=== PATIENT | female | born 1975 | race Caucasian/White ===

== ENCOUNTER 2020-01-21 23:59 | Emergency (ER) | payer MEDICAID, SELFPAY ==
[2020-01-22 00:04] VITALS: BP 117/81; PULSE 102; RESP 16; TEMP 37.1; O2SAT 100; BMI 36.0
--- NOTE | 2020-01-22 00:10 | ECG_ITS ---
APPROVED REPORT Exam: Resting ECG HR:97 bpm ECG Measurements Heart Rate 97 AXES SC 140 P 59 QRSd 76 QRS 47 QT 374 T 46 QTc 474 <Conclusion> Normal sinus rhythm Normal ECG Electronically signed by : Oscar Howard, 01/22/2020 06:16:17
--- NOTE | 2020-01-22 00:15 | CT_ITS ---
PROCEDURE: CT HEAD/BRAIN WO CON Patient Age:44Y CLINICAL INDICATION: dizzy more pronounced today Diabetic smoker COMPARISON: No exams were available for comparison TECHNIQUE: Routine axial images were obtained. All CT scans at the facility use one or more dose reduction, viz: automated exposure control, ma/kV adjustment per patient size (including targeted exams where dose is matched to indication, i.e. head), or iterative reconstruction technique. FINDINGS: No acute intracranial findings. No intracranial hemorrhage. No hydrocephalus.The ventricles and basal cisterns appear clear and satisfactory. No mass or midline shift nor mass effect. No subdural or extra-axial fluid collection is evident. Posterior fossa satisfactory/unremarkable. 4th ventricle normal position. Quadrigeminal cistern satisfactory. CP angles clear and unremarkable on this noncontrast study. Skull intact- calvarium unremarkable appearance. Nomastoid effusions. Mastoid air cells are well developed and clear throughout. Middle ear clear and unremarkable. IAC's symmetric. WNL Visualized portions of the paranasal sinuses and orbits unremarkable. Nosinus air-fluid level. Engorgement of nasal turbinates with deviation of the nasal septum and generous septal spur to the right noted. IMPRESSION: No acute intracranial findings. Unremarkable CT brain without contrast Dictated by: Olaf Canales MD 01/22/2020 07:41 Electronically signed by Olaf Canales MD in [facility] 01/22/2020 07:41
--- NOTE | 2020-01-22 00:15 | XR_ITS ---
PROCEDURE: XR CHEST 2V Patient Age:44Y CLINICAL HISTORY: near syncope COMPARISON: ABDPELW/O CT ABD PELVIS W/O CONTRAST from 12/09/2016 FINDINGS: PA and lateral chest performed. Heart is upper normal in size. Upper normal to head perhaps slight generous pulmonary vascularity. Could reflect some mild vascular engorgement but no overt CHF. Karlene and mediastinal structures satisfactory . The lungs are clear without infiltrates, suspicious nodules, or pleural effusions. No acute bony abnormalities. Generous marginal osteophytes T-spine most evident to the right and appear to account for densities project over disc spaces mid T-spine on lateral view . Previous anterior fusion, discectomy lower C-spine IMPRESSION: Nothing definitely acute. Lungs appear clear. No infiltrate or pneumonia Upper normal pulmonary vascularity Dictated by: Olaf Canales MD 01/22/2020 07:50 Electronically signed by Olaf Canales MD in [facility] 01/22/2020 07:50
[2020-01-22 00:48] LABS: Basophils # 0.1 K/mm3 (0-0.2); Basophils % 1.7 % (0.1-2.0); Eosinophils # 0.2 K/mm3 (0.0-0.4); Eosinophils % 2.7 % (0.1-12.0); Hematocrit 39.5 % (37.0-47.0); Hemoglobin 13.3 g/dL (12.2-16.2); Lymphocytes % 26.6 % (10-50); Mean Corpuscular HGB Conc 33.7 g/dL (31.8-35.4); Mean Corpuscular Hemoglobin 29.8 pg (27.0-31.2); Mean Corpuscular Volume 88.4 fl (81-99); Mean Platelet Volume 7.8 fl (7.4-10.4); Monocytes # 0.4 K/mm3 (0.1-1.0); Monocytes % 5.2 % (1.7-9.3); Neutrophils # 4.8 K/mm3 (1.8-7.8); Neutrophils % 63.8 % (37.0-80.0); Platelet Count 295 K/mm3 (142-424); Red Blood Count 4.48 M/mm3 (4.20-5.40); Red Cell Distribution Width 14.2 % (11.5-17.5); White Blood Count 7.5 K/mm3 (4.8-10.8)
[2020-01-22 00:58] VITALS: BP 113/64; PULSE 79; RESP 16; O2SAT 100
[2020-01-22 01:05] LABS: Alanine Aminotransferase 21 U/L (12-78); Albumin Level 4.2 g/dl (3.5-5.0); Albumin/Globulin Ratio 1.2 (1.1-1.8); Alkaline Phosphatase 94 U/L (38-126); Anion Gap 8.9 mEq/L (5-15); Aspartate Amino Transferase 35 U/L (14-36); Bilirubin,Total 0.2 mg/dl (0.2-1.3); Blood Urea Nitrogen 11 mg/dl (7-17); Calcium 9.3 mg/dl (8.4-10.2); Carbon Dioxide 29 mmol/L (22.0-30.0); Chloride 102 mmol/L (98-107); Creatinine Clearance Estimated 193 mL/min (50-200); Estimated Glomerular Filt Rate 108 ml/min (>60); GFR (African American) 130 ML/MIN (>60); Globulin 3.6 g/dL (1.3-3.2); Glucose 111 mg/dl (74-100); Potassium 3.9 mmoL/L (3.5-5.1); Sodium 136 mmol/L (136-145); Total Protein,Serum 7.8 g/dl (6.3-8.2)
[2020-01-22 01:10] LABS: C-Reactive Protein 10.7 mg/L (0-4)
[2020-01-22 01:14] LABS: Erythrocyte Sedimentation Rate 16 mm/hr (0-20)
[2020-01-22 01:23] LABS: Troponin I < 0.01 ng/ml (0.00-0.034)
--- NOTE | 2020-01-22 02:03 | [facility].EDDIZZ ---
ED Disposition Clinical Impression: Dizziness Disposition: Home, Self-Care Condition on Discharge: Good Instructions: Dizziness, Nonvertigo Additional Instructions: see pcp for more testing Referrals: Provider,Referral, [Primary Care Provider] - - Critical Care Critical Care Time: No Attestation: On 01/21/20, the high probability of a clinically significant, sudden or life threatening deterioration of the following system(s) required my full and direct attention, intervention and personal management. The time I documented below is in addition to time spent performing reported procedures but includes the following listed in this critical care notation. Medical Decision Making - Medical Records Medical records reviewed: Yes: I reviewed the patient's medical records. - Fitz Inquiry Pt receiving controlled substance: No Vital Signs: 01/22/20 00:04 01/22/20 00:58 Temperature 98.8 F Temperature Source Oral Pulse Rate [Right] 102 H 79 Respiratory Rate 16 16 Blood Pressure [Right Arm] 117/81 113/64 Blood Pressure Mean [Right Arm] 93 80 Blood Pressure Source [Right Arm] Automatic Cuff Blood Pressure Position [Right Arm] Sitting 02 Sat by Pulse Oximetry 100 100 Oxygen Delivery Method Room Air Room Air - Lab Data Lab results reviewed: Yes: I reviewed the patient's lab results. Lab Results 01/22/20 00:20: WBC 7.5, RBC 4.48, Hgb 13.3, Hct 39.5, MCV 88.4, MCH 29.8, MCHC 33.7, RDW 14.2, Plt Count 295, MPV 7.8, Neut % (Auto) 63.8, Lymph % (Auto) 26.6, Tyrrell % (Auto) 5.2, Eos % (Auto) 2.7, Baso % (Auto) 1.7, Neut # (Auto) 4.8, Lymph # (Auto) 2.0, Tyrrell # (Auto) 0.4, Eos # (Auto) 0.2, Baso # (Auto) 0.1, ESR 16 01/22/20 00:20: Sodium 136, Potassium 3.9, Chloride 102, Carbon Dioxide 29, Anion Gap 8.9, BUN 11, Creatinine 0.60, Estimated Creat Clear 193, Estimated GFR 108, Est GFR ( Amer) 130, Glucose 111 H, Calcium 9.3, Total Bilirubin 0.2, AST 35, ALT 21, Alkaline Phosphatase 94, Troponin I < 0.01, C-Reactive Protein 10.7 H, Total Protein 7.8, Albumin 4.2, Globulin 3.6 H, Albumin/Globulin Ratio 1.2 01/22/20 00:20: Influenza Type A Ag Negative, Influenza Type B Ag Negative Result diagrams: 01/22/20 00:20 01/22/20 00:20 Orders (Tests/Meds): ED MEDICATIONS Generic Name Dose Route Start Last Admin Trade Name Freq PRN Reason Stop Dose Admin Sodium Chloride 1,000 mls @ 999 mls/hr 01/22/20 00:15 01/22/20 00:37 Sod Chlor 0.9% 1000ml Bag IV 01/22/20 01:15 999 mls/hr .Q1H1M SHALONDA Administration Discontinued Medications Generic Name Dose Route Start Last Admin Trade Name Freq PRN Reason Stop Dose Admin Methylprednisolone Sodium Succinate 125 mg 01/22/20 00:15 01/22/20 00:37 Solu-Medrol 125mg/2ml Vial IV 01/22/20 00:16 125 mg ONCE ONE Administration ORDERS Category Date Time Status CT head/brain wo con Stat Cat Scan 01/22/20 00:15 Taken XR chest 2V Stat Exams 01/22/20 00:15 Taken Troponin I Q3H Lab 01/22/20 03:30 Ordered Troponin I Q3H Lab 01/22/20 06:30 Ordered - CT Data CT Scan: Head Time Received: 02:[address] Reviewed: Yes: I have viewed the radiologist's interpretation Preliminary Findings: Normal/NAD - ECG Data Tracing #1 Normal Sinus Rhythm: Yes Ischemic changes: non-specific ST-T wave changes - Reevaluation(s) Time: 02:15 Reevaluation #1: improved - GLORIA Score for Non-Stemi Age of Patient: 40-49 years old Heart Rate: 90-109 bpm Systolic Blood Pressure: 100-119 mmHg Serum Creatinine: 0.40-0.79 mg/dl CHF Killip Class: I-No CHF Other Risk Factors: None Non-Stemi Risk Score: 87 Medical Decision Narrative: possible atypical migraine Dizzy HPI - General Chief Complaint: Dizziness Stated Complaint: Headache Time Seen by Provider: 01/22/20 00:35 Mode of Arrival: EMS Source of Information: Patient, Medical Record Limitations: No Limitations Description of Symptoms (Recalled from ER Triage Doc. by RN): Pt states she was
[2020-01-22 02:20] VITALS: BP 118/74; PULSE 76; RESP 16; TEMP 37.1; O2SAT 98
== END 2020-01-22 02:23 | disposition home or self-care (01) ==
PROVIDERS: Emergency Provider Emergency Medicine
DX: R42 Dizziness and giddiness (principal); F41.8 Other specified anxiety disorders; E11.9 Type 2 diabetes mellitus without complications; K21.9 Gastro-esophageal reflux disease without esophagitis; G43.709 Chronic migraine without aura, not intractable, without status migrainosus; M79.7 Fibromyalgia; F17.210 Nicotine dependence, cigarettes, uncomplicated; Z90.49 Acquired absence of other specified parts of digestive tract
CPT/HCPCS: 70450; 71046; 80053; 84484; 85025; 85651; 86140; 87275; 87276; 93005; 96365; 96375; 99284